=== PATIENT | female | born 1955 | race Caucasian/White ===

== ENCOUNTER 2025-01-06 16:29 | Observation (INO) ==
[2025-01-06 16:56] LABS: Hematocrit (blood only) 38.2 % (37.0-47.0); Hemoglobin 12.9 g/dl (12.0-16.0); Immature Granulocytes # (auto) 0.03 K/uL (0.01-0.20); Immature Granulocytes % (auto) 0.3 %; Mean Corpuscular Hemoglobin 30.9 pg (25.0-34.0); Mean Corpuscular Volume 91.4 fL (80.0-100.0); Platelet Count 269 K/uL (130-400); RDW Standard Deviation 42.8 fL (36.4-46.3); Red Blood Count 4.18 M/uL (4.20-5.40); White Blood Count 10.61 K/ul (4.8-10.8)
[2025-01-06 17:15] LABS: Alanine Aminotransferase 12.0 U/L (7-52); Albumin Globulin Ratio 1.0 (0.9-2); Alkaline Phosphatase 75.0 U/L (34-104); Anion Gap 9.0 (3-11); Bilirubin,Total 0.5 mg/dl (0.2-1.0); Blood Urea Nitrogen 18.0 mg/dl (6-23); Calcium 9.8 mg/dl (8.6-10.3); Carbon Dioxide 27.0 mmol/L (21-32); Chloride 103.0 mmol/L (98-107); Creatinine Clr Calc Pharmacy 62.3 ml/min; Globulin 4.2 gm/dl (2.5-4.0); Glucose 119.0 mg/dl (70-99(Fasting)); Potassium 3.7 mmol/L (3.5-5.1); Sodium 139.0 mmol/L (136-145); Total Protein 8.5 gm/dl (6.0-8.3)
[2025-01-06 17:24] LABS: INR 1.0 (0.9-1.1); Partial Thromboplastin Time 29 Seconds (21-31); Prothrombin Time 10.4 Seconds (9.0-12.0)
--- NOTE | 2025-01-06 17:30 | XRay Report ---
Clinical History: Chest pain Technique: PA and lateral views of the chest were obtained Comparison is made with the prior examination dated 12/28/2018 Findings: There are no confluent pulmonary infiltrates. The heart size is within normal limits. No pleural effusion or pneumothorax is seen. There is a suspected small calcified granuloma in the right upper lobe No fracture is noted. No foreign body is seen Impression: No active disease Electronically signed by Nathen Wong 01-06-2025 5:30 PM
--- NOTE | 2025-01-06 19:20 | Emergency Department Note ---
Impression & Plan Elevated troponin Admission ED Provider Note HPI: History obtained from patient. The patient is a 69-year-old female with history of anxiety, palpitations, depression, presents the emergency department with chief complaint of "my heart beating hard and slow". Patient states this occurred earlier today when she was having a root canal done. Patient states when they leaned her back in the chair she began to have the sensation. Patient states over the past 11 days she has had some "soreness" on the left side of her chest. Patient states that she mentioned all of the symptoms to the triage nurse on the phone when she called her doctor today and she was advised to come to the emergency room. On arrival here to the ED the patient is hypertensive, heart rate is within normal limits, patient otherwise appears to be in no acute distress. Patient denies any active chest pain on my exam. ROS: - Per HPI Differential Diagnosis: Arrhythmia to include SVT, atrial fibrillation with RVR, ventricular tachycardia, high degree heart block, ACS, PE, aortic dissection, anxiety reaction, amongst other potential pathologies. *Outpatient medications and allergy history reviewed. PE: General: Alert HEENT: Normocephalic, trachea midline Eyes: Extraocular eye movement is intact, no scleral erythema Pulmonary: Clear to auscultation bilaterally, no wheezing Cardio: Regular rate and rhythm GI: Abdomen is soft to palpation : No suprapubic tenderness MSK: No evidence of trauma or malformation of the extremities, no edema Skin: No evidence of rash Neuro: Alert, no focal deficits Psychiatric: Cooperative INDEPENDENT INTERPRETATIONS: monitor car operator: (As interpreted by myself): - An order was placed for continuous cardiac monitoring - Patient was noted to be in sinus rhythm with a rate of 95 EKG: (As interpreted by myself): Rate: 80 Rhythm: Normal sinus rhythm Intervals: Within normal limits ST changes: No ST elevation Time: 1638 Chest x-ray: (As interpreted by myself): No acute disease Interventions provided in ED: - Aspirin Medical Decision Making: IV was established and lab work obtained, patient was placed on cardiac technician. Lab work shows no leukocytosis, hemoglobin is normal, platelet count is normal, CMP does not show any evidence of any critical findings. Troponin was obtained and is mildly elevated at 18.0, patient denies any active chest pain. EKG per my interpretation shows normal sinus rhythm without acute ischemic changes. Magnesium is within normal limits, TSH is also normal. Repeat troponin was obtained given the mild elevation on the first, repeat troponin is elevated at 32. Given this with this atypical sensation that she had in her chest earlier today, I do feel the patient should be admitted for further management. Patient was in agreement to this plan. She was ordered a dose of aspirin for her mildly elevated troponin. She continues to deny chest pain on my reevaluation. I discussed the above findings with the on-call hospitalist, Dr. Warren, he is in agreement to admit the patient. Patient was placed for admission in stable condition for further care. Consultants/Discussions held with other healthcare providers: - Hospitalist, Dr. Warren Disposition discussion held by myself with: - Patient Diagnosis: 1. Elevated troponin, acute 2. Sensation of palpitations, acute 3. Hypertension, established Disposition: Admission Margarito Argueta DO Emergency Medicine Past Med/Surg History Problem List (Updated 01/06/25 @ 20:41 by Margarito Argueta DO) Elevated troponin (Acute) Medical History (Updated 01/06/25 @ 20:41 by Margarito Argueta DO) Palpitations Anxiety Major depression Surgical History No significant past surgical history Social History Smoking Status: Never smoker Preferred Language: Spanish marital status: Single Current Living Situation: Alone current occupational status: disabled Feels Safe at Home: Yes Allergies Allergies Allergy/AdvReac Type Severity Reaction Status Date / Time amoxicillin Allergy Severe Rash Unverified 01/06/25 19:55 Penicillins Allergy Severe Rash Unverified 01/06/25 19:55 clindamycin AdvReac Severe Gastrointestinal Unverified 01/06/25 19:56 Upset PT STATES DIFF TO NUMEROUSE Allergy Mild SENSITIVITY Uncoded 12/28/18 09:35 DRUGS Home Meds Home Medications Medication Instructions Recorded Confirmed metoprolol succinate 25 mg 12.5 mg PO QAM 12/28/18 01/06/25 tablet,extended release 24 hr temazepam 30 mg capsule 30 mg PO HS PRN Sleep 12/28/18 01/06/25 5-HTP 18.8 mg-tyrosine 187.5 1 cap PO HS 01/06/25 01/06/25 [id number]-chrom capsule cholecalciferol (vitamin D3) 125 10,000 unit PO DAILY 01/06/25 01/06/25 mcg (5,000 unit) tablet (Vitamin D3) flaxseed oil 1,000 mg capsule 1,000 mg PO DAILY 01/06/25 01/06/25 lutein 40 mg-zeaxanthin 1,600 mcg 1 cap PO DAILY 01/06/25 01/06/25 capsule magnesium citrate 5 ml PO QPM 01/06/25 01/06/25 melatonin 1 mg tablet 4 mg PO HS PRN Sleep 01/06/25 01/06/25 vitamin B complex 1 cap PO QAM 01/06/25 01/06/25 Results & Data (ED) Vital Signs Vital Signs - 24 hr 01/06/25 16:30 01/06/25 16:30 01/06/25 19:01 Temperature 36.6 C Temperature Source Temporal Artery Scan Pulse Rate 99 H 93 H Pulse Rate [Apical] Pulse Rhythm [Apical] Pulse Strength [Apical] Respiratory Rate 18 Respiratory Effort / Characteristics Respiratory Depth Respiratory Pattern Blood Pressure 203/92 H Blood Pressure [Right Arm] Blood Pressure Mean 129 Blood Pressure Mean [Right Arm] Blood Pressure Position [Right Arm] Pulse Oximetry 95 Oxygen Delivery Method Room Air Sepsis Recent Fever Within 48 Hours No Sepsis New/Unexplained Change in Mental Status N/A Sepsis Action Taken by Nursing No Action Required 01/06/25 19:41 01/06/25 19:41 01/06/25 19:41 Temperature Temperature Source Pulse Rate Pulse Rate [Apical] 63 Pulse Rhythm [Apical] Regular Pulse Strength [Apical] Normal Respiratory Rate 17 Respiratory Effort / Characteristics Non-Labored Respiratory Depth Normal Respiratory Pattern Regular Blood Pressure Blood Pressure [Right Arm] 183/91 H Blood Pressure Mean Blood Pressure Mean [Right Arm] 121 Blood Pressure Position [Right Arm] Sitting Pulse Oximetry 96 96 96 Oxygen Delivery Method Room Air Room Air Room Air Sepsis Recent Fever Within 48 Hours Sepsis New/Unexplained Change in Mental Status Sepsis Action Taken by Nursing Laboratory Data 01/06/25 16:40 01/06/25 16:40 Lab Results 01/06/25 01/06/25 Range/Units 16:40 19:28 WBC 10.61 (4.8-10.8) K/ul RBC 4.18 L (4.20-5.40) M/uL Hgb 12.9 (12.0-16.0) g/dl Hct 38.2 (37.0-47.0) % MCV 91.4 (80.0-100.0) fL MCH 30.9 (25.0-34.0) pg MCHC 33.8 (32.0-36.0) g/dL RDW Std Deviation 42.8 (36.4-46.3) fL RDW Coeff of Morgan 12.8 (11.5-14.5) % Plt Count 269 (130-400) K/uL MPV 10.4 (9.4-12.4) fL Immature Gran % (Auto) 0.3 % Neut % (Auto) 77.7 % Lymph % (Auto) 16.2 % [place] % (Auto) 5.0 % Eos % (Auto) 0.4 % Baso % (Auto) 0.4 % Neut # (Auto) 8.25 H (1.40-6.50) K/uL Lymph # (Auto) 1.72 (1.20-3.40) K/uL [place] # (Auto) 0.53 (0.11-0.59) K/uL Eos # (Auto) 0.04 (0.00-0.50) K/uL Baso # (Auto) 0.04 (0.00-0.20) K/uL Immature Gran # (Auto) 0.03 (0.01-0.20) K/uL PT 10.4 (9.0-12.0) Seconds INR 1.0 (0.9-1.1) APTT 29 (21-31) Seconds PTT Ratio 1.1 Sodium 139 (136-145) mmol/L Potassium 3.7 (3.5-5.1) mmol/L Chloride 103 (98-107) mmol/L Carbon Dioxide 27 (21-32) mmol/L Anion Gap 9 (3-11) BUN 18 (6-23) mg/dl Creatinine 0.84 (0.6-1.2) mg/dl Est Cr Clr Drug Dosing 62.3 ml/min eGFR 75.65 BUN/Creatinine Ratio 21.4 H (10-20) Glucose 119 H (70-99(Fasting)) mg/dl Calcium 9.8 (8.6-10.3) mg/dl Magnesium 2.0 (1.7-2.4) mg/dl Total Bilirubin 0.5 (0.2-1.0) mg/dl AST 19 (13-39) U/L ALT 12 (7-52) U/L Alkaline Phosphatase 75 (34-104) U/L Troponin I High Sens 18.0 H 32.6 H D (0-14) pg/ml Total Protein 8.5 H (6.0-8.3) gm/dl Albumin 4.3 (3.4-5.0) gm/dl Globulin 4.2 H (2.5-4.0) gm/dl Albumin/Globulin Ratio 1.0 (0.9-2) TSH 2.435 (0.300-4.500) uIu/ml Imaging Data Radiologist's Impression: Chest X-Ray 01/06/25 16:36 Clinical History: Chest pain Technique: PA and lateral views of the chest were obtained Comparison is made with the prior examination dated 12/28/2018 Findings: There are no confluent pulmonary infiltrates. The heart size is within normal limits. No pleural effusion or pneumothorax is seen. There is a suspected small calcified granuloma in the right upper lobe No fracture is noted. No foreign body is seen Impression: No active disease Electronically signed by Nathen Wong 01-06-2025 5:30 PM Discharge Plan Visit Data Chief Complaint: Chest Pain Stated Complaint: CHEST PAIN, ARRHYTHMIA, INFECTION, REF BY ED Provider: Margarito Argueta Discharge Problem: Elevated troponin Patient Disposition: Admitted As Inpatient Condition: Fair Forms Stand Alone Forms: [facility] Prescriptions Prescriptions: No Action temazepam 30 mg capsule 30 mg PO HS PRN (Reason: Sleep) metoprolol succinate 25 mg tablet extended release 24 hr 12.5 mg PO QAM flaxseed oil 1,000 mg Capsule 1,000 mg PO DAILY Rx Instructions: administer with a meal magnesium citrate Solution 5 ml PO QPM vitamin B complex Capsule 1 cap PO QAM melatonin 1 mg Tablet 4 mg PO HS PRN (Reason: Sleep) cholecalciferol (vitamin D3) [Vitamin D3] 125 mcg (5,000 unit) Tablet 10,000 unit PO DAILY lutein-zeaxanthin 40-1,600 mg-mcg Capsule 1 cap PO DAILY [id number]-[id number]-U-chr 18.8-187.5-93.8 mg Capsule 1 cap PO HS Referrals Referrals: Dana Madsen MD [Primary Care Provider] -
[2025-01-06 19:58] LABS: Magnesium 2.0 mg/dl (1.7-2.4)
[2025-01-06 20:35] LABS: Thyroid Stimulating Hormone 2.435 uIu/ml (0.300-4.500)
--- NOTE | 2025-01-06 20:36 | History & Physical Report ---
Date of Service January 06, 2025 Assessment & Plan (1) Palpitations: (2) Elevated troponin: Plan: HPI, ROS, PE completed by Tara Peña PA-C Assessment and Plan per Dr Warren. See addendum History of Present Illness Chief Complaint: palpitations Primary Care Provider: Dana Madsen MD Patient is 69 year old female with PMH anxiety, insomnia, GUANAKO presented to ER with complaint of palpitations. on 12/31/2024 was treated with Zithromax for dental infection which she finished antibiotics. Difficult to obtain history as patient repeats "I've reached my limit for the day" and doesn't want to discuss. Patient reports had a root canal this morning. She reports she has not eaten since this morning and is concerned about eating this evening. She reports currently is having a headache which she relates is secondary to not eating. She reports she is feeling anxious. Patient does state last week had episode of palpitations that she describes as her heart beating hard then felt like it was beating slow and this occurred with walking and resolved with rest. She doesn't feel that she was anxious at the time. She stopped her daily walks as thought that was factor. Had another episode of palpitations with walking several days ago that again resolved with rest. Today she sat down in dentist chair for her dental procedure and felt anxious and reports had palpitations again. Since being in ER patient denies any palpitations, CP, SOB. Just reports feeling anxious currently. Denies any CP or SOB, dizziness or syncope. has taken xanax in past prior to dental appointments but took one quarter of tablet and didn't feel helped much with anxiety. Denies fever/chills, diaphoresis, N/V/D/C, vision changes, neck pain, cough, sore throat, rhinorrhea, abdominal pain, paresthesias, weakness, extremity edema, rashes, urinary symptoms. Allergies Allergy/AdvReac Type Severity Reaction Status Date / Time amoxicillin Allergy Severe Rash Unverified 01/06/25 19:55 Penicillins Allergy Severe Rash Unverified 01/06/25 19:55 clindamycin AdvReac Severe Gastrointestinal Unverified 01/06/25 19:56 Upset PT STATES DIFF TO NUMEROUSE Allergy Mild SENSITIVITY Uncoded 12/28/18 09:35 DRUGS Home Medications Medication Instructions Recorded Confirmed Type metoprolol succinate 25 mg 12.5 mg PO QAM 12/28/18 01/06/25 History tablet,extended release 24 hr temazepam 30 mg capsule 30 mg PO HS PRN Sleep 12/28/18 01/06/25 History 5-HTP 18.8 mg-tyrosine 187.5 1 cap PO HS 01/06/25 01/06/25 History [id number]-[id number]-C-chrom capsule cholecalciferol (vitamin D3) 125 10,000 unit PO DAILY 01/06/25 01/06/25 History mcg (5,000 unit) tablet (Vitamin D3) flaxseed oil 1,000 mg capsule 1,000 mg PO DAILY 01/06/25 01/06/25 History lutein 40 mg-zeaxanthin 1,600 mcg 1 cap PO DAILY 01/06/25 01/06/25 History capsule magnesium citrate 5 ml PO QPM 01/06/25 01/06/25 History melatonin 1 mg tablet 4 mg PO HS PRN Sleep 01/06/25 01/06/25 History vitamin B complex 1 cap PO QAM 01/06/25 01/06/25 History Past Med/Surg History Problem List (Updated 01/06/25 @ 21:20 by Tara Peña PA-C) Palpitations Elevated troponin (Acute) Medical History (Updated 01/06/25 @ 21:20 by Tara Peña PA-C) GUANAKO (obstructive sleep apnea) Anxiety Major depression Surgical History (Updated 01/06/25 @ 21:17 by Tara Peña PA-C) History of esophagogastroduodenoscopy (EGD) Family History (Updated 01/06/25 @ 21:17 by Tara Peña PA-C) Other Colorectal cancer Diabetes Hypertension Social History Smoking Status: Never smoker Hx Alcohol Use: Yes Alcohol type: other Hx Substance Use: No Preferred Language: Slovenian 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 Beliefs That Will Affect Care: None marital status: Single Current Living Situation: Alone current occupational status: disabled Other Information That Helps Us Care for You: Yes (ongoing mold problem at home comes every fall) Feels Safe at Home: Yes Safety Concerns: Feels Safe At This Time Review of Systems Review of Systems: All systems reviewed & are unremarkable except as noted in HPI & below Physical Exam Physical Exam: General: no distress, WDWN Head: normocephalic, atraumatic Eyes: conjunctiva non-injected, anicteric ENT: normal inspection external ears, nose, mucous membranes moist Neck: supple, trachea midline Lungs: clear, no respiratory distress, no wheezing/rhonchi/rales CV: RRR, no murmur, no pretibial edema Abd: normal BS, soft, non-tender Ext: no cyanosis, no calf tenderness Neuro: A&O x 3, no focal deficits noted, flat affect Skin: warm, dry Results & Data Results & Data Vital Signs (Past 12 Hours) Vital Signs Temp Pulse Pulse Resp BP BP Pulse Ox 01/06/25 19:41 63 17 183/91 H 96 01/06/25 19:41 96 01/06/25 19:41 96 01/06/25 19:01 93 H 01/06/25 16:30 01/06/25 16:30 36.6 C 99 H 18 203/92 H 95 O2 Del Method 01/06/25 19:41 Room Air 01/06/25 19:41 Room Air 01/06/25 19:41 Room Air 01/06/25 19:01 01/06/25 16:30 Room Air 01/06/25 16:30 Laboratory Results Short CBC 01/06/25 Range/Units 16:40 WBC 10.61 (4.8-10.8) K/ul Hgb 12.9 (12.0-16.0) g/dl Hct 38.2 (37.0-47.0) % Plt Count 269 (130-400) K/uL BMP 01/06/25 16:40 Sodium 139 Potassium 3.7 Chloride 103 Carbon Dioxide 27 BUN 18 Creatinine 0.84 Glucose 119 H Calcium 9.8 Liver Function 01/06/25 Range/Units 16:40 Total Bilirubin 0.5 (0.2-1.0) mg/dl AST 19 (13-39) U/L ALT 12 (7-52) U/L Alkaline Phosphatase 75 (34-104) U/L Albumin 4.3 (3.4-5.0) gm/dl Diagnostic Findings Chest X-Ray 01/06/25 16:36 Clinical History: Chest pain Technique: PA and lateral views of the chest were obtained Comparison is made with the prior examination dated 12/28/2018 Findings: There are no confluent pulmonary infiltrates. The heart size is within normal limits. No pleural effusion or pneumothorax is seen. There is a suspected small calcified granuloma in the right upper lobe No fracture is noted. No foreign body is seen Impression: No active disease Electronically signed by Nathen Wong 01-06-2025 5:30 PM ECG Additional Comments: Sinus rhythm, rate 80, nonspecific ST changes per my interpretation Supervising Physician Co-Signing Physician Notes IM ATTENDING : Patient seen and examined. History obtained from patient and records. Concur with salient points upon review of preceding documentation by Ms. Tara Peña PA-C. In addition: CT head Unremarkable noncontrast CT scan of the brain. If further evaluation is clinically necessary, consider correlation with MRI. I take responsibility for plan of care below. FINAL ASSESSMENT AND PLAN as follows : Palpitations Multifactorial Uncontrolled hypertension HTP home supplement and anxiety contributory Troponin elevation secondary to uncontrolled hypertension GUANAKO on CPAP Prediabetes, hemoglobin A1c of 5.6 from 2022 Mood disorder, at baseline OBS Admit to PCU Titrate home beta-cameron as heart rate permits Add lisinopril to regimen Anxiolytic as needed Patient counseled regarding propensity of HTP home supplement to cause arrhythmias from serotonin release. Update hemoglobin A1c DVT prophylaxis. SCDs Full code I spent a total of 30 minutes coordinating, documenting, and providing care for this patientexcludingtime spent by another provider/QHP. Text document was generated using [employer] voice recognition software. It may contain grammatical or spelling errors. Kindly contact undersigned for clarification of any documentation item in question.
[2025-01-06] MEDS: METOPROLOL TARTRATE 1 MG/ML VIAL IV STA (21:10)
[2025-01-06] MEDS: ASPIRIN CHEW 324 MG PO STA (21:10)
[2025-01-06] MEDS: POTASSIUM CHLORIDE CRTAB 20 MEQ TABCR PO STA (21:11)
[2025-01-06] MEDS: ACETAMINOPHEN 325 MG TAB PO STA (22:27)
--- NOTE | 2025-01-06 23:03 | CT Scan Report ---
Exam(s): CT HEAD Without Contrast EXAM: CT Head Without Intravenous Contrast CLINICAL HISTORY: Reason for exam: [facility], [facility] crisis. TECHNIQUE: Axial computed tomography images of the head/brain without intravenous contrast. CTDI is 35 mGy and DLP is 546 mGy-cm. Automated exposure control was utilized for the study. A dose lowering technique was utilized adhering to the principles of ALARA. COMPARISON: No relevant prior studies available. FINDINGS: Brain: No acute intracranial hemorrhage. No significant white matter disease. No edema. Ventricles: Unremarkable. No ventriculomegaly. Bones/joints: Unremarkable. No acute fracture. Soft tissues: Unremarkable. Sinuses: Unremarkable as visualized. No acute sinusitis. Mastoid air cells: Unremarkable as visualized. No mastoid effusion. IMPRESSION: Unremarkable noncontrast CT scan of the brain. If further evaluation is clinically necessary, consider correlation with MRI. Electronically signed by: Uriel Figueroa MD 01/06/25 23:02 PM
[2025-01-06] MEDS ORDERED: LORazepam 0.5 MG TAB PO PRN (23:09)
[2025-01-06] MEDS ORDERED: PROMETHAZINE 6.25 MG/50.25 ML BAG IV PRN (23:09)
[2025-01-07] MEDS: LORazepam 1 MG TAB PO PRN (01:23)
[2025-01-07] MEDS: MELATONIN 3 MG TAB PO PRN (01:23)
[2025-01-07] MEDS: ACETAMINOPHEN 325 MG TAB PO PRN (01:25)
[2025-01-07 07:11] LABS: Anion Gap 5.0 (3-11); Calcium 9.1 mg/dl (8.6-10.3); Carbon Dioxide 27.0 mmol/L (21-32); Chloride 107.0 mmol/L (98-107); Potassium 4.1 mmol/L (3.5-5.1); Sodium 139.0 mmol/L (136-145)
[2025-01-07 07:16] LABS: Blood Urea Nitrogen 14.0 mg/dl (6-23); Creatinine Clr Calc Pharmacy 75.9 ml/min; Glucose 82.0 mg/dl (70-99(Fasting))
[2025-01-07] MEDS: VITAMIN B COMPLEX TAB PO SCH (08:06)
[2025-01-07] MEDS: METOPROLOL SUCC 25MG EXT REL TAB PO SCH (08:06)
[2025-01-07 08:35] LABS: Hemoglobin A1C 5.7 % (4.5-5.6)
--- NOTE | 2025-01-07 11:21 | Electrocardiogram Report ---
Test Reason : Blood Pressure : */* mmHG Vent. Rate : 80 BPM Atrial Rate : 80 BPM P-R Int : 126 ms QRS Dur : 80 ms QT Int : 374 ms P-R-T Axes : 52 69 47 degrees QTcB Int : 431 ms Normal sinus rhythm Nonspecific ST abnormality Abnormal ECG When compared with ECG of 28-Dec-2018 11:40, ST now depressed in Inferior leads Confirmed by Luis Hills ([id number]) on 01/07/2025 11:20:44 AM Referred By: Confirmed By: Luis Hills
[2025-01-07 15:47] VITALS: BP 133/78; RESP 20; TEMP 98.4; O2SAT 93
--- NOTE | 2025-01-07 15:59 | Hospitalist Progress Note ---
Date of Service January 07, 2025 Assessment & Plan (1) Palpitations: Plan 69 year old female with PMH anxiety, insomnia, GUAANKO presented to ER with complaint of palpitations. Patient reports she has frequent anxiety and palpitation, but has been having more lately. Patient not open to scheduled psychiatric medication, is not open to inpatient psychiatric evaluation. Patient denies chest pain or shortness of breath. Anxiety and palpitation: Patient has underlying history of anxiety, not open to psychiatric evaluation, okay with as needed Vistaril, not open with a scheduled medication. Patient encouraged to continue to follow-up with her outpatient psychiatry. Patient advised to stop HTP home supplement. Elevated troponin: Likely demand ischemia in the setting of uncontrolled blood pressure and palpitation. Troponin slightly up trended and then down trended. Patient without chest pain or shortness of breath. EKG without ST-T changes. Pending echo. Continue telemetry monitoring. Uncontrolled hypertension: Lisinopril added, metoprolol dose increased. Follow echo. GUANAKO on CPAP Prediabetes: Repeat A1c in 3 months. Mood disorder, patient reports she is at her baseline. DVT prophylaxis: SCDs Full code Admission and Anticipated Discharge Date Admission Date: January 06, 2025 Subjective Patient was seen and examined at bedside. Patient was sitting up in bed, on room air, NAD, resting comfortably. Patient reports not significant palpitation while in hospital, denies chest pain or shortness of breath or nausea or warmth. Patient reports that she follows with psychiatry as an outpatient but appears that she has not opened up to psy medication. Patient declined inpatient psychiatric evaluation, is okay with as needed hydroxyzine upon discharge. Physical Exam Physical Exam: General: no distress, WDWN Head: normocephalic, atraumatic Eyes: conjunctiva non-injected, anicteric ENT: normal inspection external ears, nose, mucous membranes moist Neck: supple, trachea midline Lungs: clear, no respiratory distress, no wheezing/rhonchi/rales CV: RRR, no murmur, no pretibial edema Abd: normal BS, soft, non-tender Ext: no cyanosis, no calf tenderness Neuro: A&O x 3, no focal deficits noted, flat affect Skin: warm, dry Results & Data Results & Data Vital Signs (Past 12 Hours) Vital Signs Temp Pulse Pulse Resp BP Pulse Ox O2 Del Method 01/07/25 15:46 36.9 C 112 H 20 133/78 93 Room Air 01/07/25 11:34 36.7 C 77 19 116/75 98 Room Air 01/07/25 07:46 36.4 C L 69 16 128/76 98 Room Air 01/07/25 07:43 52 L
--- NOTE | 2025-01-07 16:39 | Discharge Summary ---
Date of Service January 07, 2025 Admission HPI Per Admitting Provider Patient is 69 year old female with PMH anxiety, insomnia, GUANAKO presented to ER with complaint of palpitations. on 12/31/2024 was treated with Zithromax for dental infection which she finished antibiotics. Difficult to obtain history as patient repeats "I've reached my limit for the day" and doesn't want to discuss. Patient reports had a root canal this morning. She reports she has not eaten since this morning and is concerned about eating this evening. She reports currently is having a headache which she relates is secondary to not eating. She reports she is feeling anxious. Patient does state last week had episode of palpitations that she describes as her heart beating hard then felt like it was beating slow and this occurred with walking and resolved with rest. She doesn't feel that she was anxious at the time. She stopped her daily walks as thought that was factor. Had another episode of palpitations with walking several days ago that again resolved with rest. Today she sat down in dentist chair for her dental procedure and felt anxious and reports had palpitations again. Since being in ER patient denies any palpitations, CP, SOB. Just reports feeling anxious currently. Denies any CP or SOB, dizziness or syncope. has taken xanax in past prior to dental appointments but took one quarter of tablet and didn't feel helped much with anxiety. Denies fever/chills, diaphoresis, N/V/D/C, vision changes, neck pain, cough, sore throat, rhinorrhea, abdominal pain, paresthesias, weakness, extremity edema, rashes, urinary symptoms. Admission Exam Per Admitting Provider General: no distress, WDWN Head: normocephalic, atraumatic Eyes: conjunctiva non-injected, anicteric ENT: normal inspection external ears, nose, mucous membranes moist Neck: supple, trachea midline Lungs: clear, no respiratory distress, no wheezing/rhonchi/rales CV: RRR, no murmur, no pretibial edema Abd: normal BS, soft, non-tender Ext: no cyanosis, no calf tenderness Neuro: A&O x 3, no focal deficits noted, flat affect Skin: warm, dry Principal Diagnosis Palpitation Uncontrolled hypertension Underlying anxiety Discharge Exam General: no distress, WDWN Head: normocephalic, atraumatic Eyes: conjunctiva non-injected, anicteric ENT: normal inspection external ears, nose, mucous membranes moist Neck: supple, trachea midline Lungs: clear, no respiratory distress, no wheezing/rhonchi/rales CV: RRR, no murmur, no pretibial edema Abd: normal BS, soft, non-tender Ext: no cyanosis, no calf tenderness Neuro: A&O x 3, no focal deficits noted, flat affect Skin: warm, dry Discharge Data Allergies Allergy/AdvReac Type Severity Reaction Status Date / Time amoxicillin Allergy Severe Rash Unverified 01/06/25 19:55 Penicillins Allergy Severe Rash Unverified 01/06/25 19:55 clindamycin AdvReac Severe Gastrointestinal Unverified 01/06/25 19:56 Upset PT STATES DIFF TO NUMEROUSE Allergy Mild SENSITIVITY Uncoded 12/28/18 09:35 DRUGS Consultations 01/06/25 20:16 ED Decision to Admit Stat Ordered Studies 01/06/25 21:25 CT head/brain wo con Stat Hospital Course (1) Palpitations: Plan 69 year old female with PMH anxiety, insomnia, GUANAKO presented to ER with complaint of palpitations. Patient reports she has frequent anxiety and palpitation, but has been having more lately. Patient not open to scheduled psychiatric medication, is not open to inpatient psychiatric evaluation. Patient denies chest pain or shortness of breath. Anxiety and palpitation: Patient has underlying history of anxiety, not open to psychiatric evaluation, okay with as needed Vistaril, not open with a scheduled medication. Patient encouraged to continue to follow-up with her outpatient psychiatry. Patient advised to stop HTP home supplement. Elevated troponin: Likely demand ischemia in the setting of uncontrolled blood pressure and palpitation. Troponin slightly up trended and then down trended. Patient without chest pain or shortness of breath. EKG without ST-T changes. ECHO w/ nl EF and nl LV wall motion. Continue telemetry monitoring. Uncontrolled hypertension: Lisinopril added, metoprolol dose increased. BP better controlled now. pt advised to f/u w/ pcp office closely for ongoing management of HTN. GUANAKO on CPAP Prediabetes: f/u w/ pcp for senior care monitoring. Mood disorder, patient reports she is at her baseline. DVT prophylaxis: SCDs Full code Follow-up with your primary care physician within a week time and likely you will need labs CBC/CMP/magnesium/phosphorus. As discussed at the bedside, recommend that you continue to follow-up with your outpatient psychiatry and consider medication trial for your anxiety disorder. Your blood pressure medication has been optimized, your metoprolol dose has been increased. Recommend that you stop 5-hydroxytryptophan supplement. Take your medications as prescribed. Please make sure that you are able to get your medications today by calling your pharmacy before you leave the hospital so that your treatment continuity is not broken. Home Health Attestation I certify that this patient is under my care and that I, or a physicians corporate administrative assistant working with me, had a face to-face encounter that meets the home health [id number] encounter requirements with this patient. The encounter with the patient was in whole, or in part, for the following medical condition, which is the primary reason for home health care (list medical condition): I certify that, based on my findings, the following services are medically necessary home health services: My clinical findings support the need for the above services because: Further, I certify that my clinical findings support that this patient is homebound (i.e. absences from home require considerable and taxing effort and are for medical reasons or confucianist services or infrequently or of short duration when for other reasons) because: Certification for Home Health Services: Based on the above findings, I certify that this patient is confined to the home and needs intermittent usp care, physical therapy and/or speech therapy or continues to need occupational therapy. The patient is under my care, and I have initiated the establishment of the plan of care. This patient will be followed by a physician who will periodically review the plan of care. Total Time Total Time Spent Total Time Spent (In Minutes): 45 Discharge Plan Discharge Items Patient Disposition: Home - Self-Care Reason For Visit: PALPITATIONS, PRIVATE RM PER REQ Discharge Diagnosis: Palpitation Uncontrolled hypertension Underlying anxiety Condition on Discharge: Fair Activity: Resume your previous activity Non-emergency contact: Primary Care Provider Call non-emergency contact if: you have any medication questions and your symptoms worsen Follow-up/Referrals: Dana Madsen MD [Primary Care Provider] - Diet: Gluten Free, Heart Healthy and Lactose Intolerant Addtl Attending Provider Instructions: Follow-up with your primary care physician within a week time and likely you will need labs CBC/CMP/magnesium/phosphorus. As discussed at the bedside, recommend that you continue to follow-up with your outpatient psychiatry and consider medication trial for your anxiety disorder. Your blood pressure medication has been optimized, your metoprolol dose has been increased. Recommend that you stop 5-hydroxytryptophan supplement. Take your medications as prescribed. Please make sure that you are able to get your medications today by calling your pharmacy before you leave the hospital so that your treatment continuity is not broken. Pending Studies at Discharge: No Stand-Alone Forms: [facility], Smoking Cessation Medications and DC Order Prescriptions: New metoprolol succinate 25 mg Tablet Extended Release 24 Hr 25 mg PO QAM Qty: 30 0RF hydroxyzine HCl 10 mg Tablet 10 mg PO TID PRN (Reason: anxiety) Qty: 15 0RF lisinopril 2.5 mg Tablet 2.5 mg PO QAM Qty: 30 0RF Continued temazepam 30 mg capsule 30 mg PO HS PRN (Reason: Sleep) magnesium citrate Solution 5 ml PO QPM vitamin B complex Capsule 1 cap PO QAM melatonin 1 mg Tablet 4 mg PO HS PRN (Reason: Sleep) cholecalciferol (vitamin D3) [Vitamin D3] 125 mcg (5,000 unit) Tablet 10,000 unit PO DAILY Discontinued flaxseed oil 1,000 mg Capsule 1,000 mg PO DAILY Rx Instructions: administer with a meal lutein-zeaxanthin 40-1,600 mg-mcg Capsule 1 cap PO DAILY [id number] 18.8-187.5-93.8 mg Capsule 1 cap PO HS No Action metoprolol succinate 25 mg tablet extended release 24 hr 12.5 mg PO QAM Discharge Orders: Discharge Order (Routine); Ordered 01/07/25 Ordered By: Alan Bashir Admission Data Admit Date/Time: 01/06/25 23:06 Attending Provider: Alan Bashir Admit Provider: Shun Warren Primary Care Provider: Dana Madsen Other Providers: Shun Warren
[2025-01-07 17:43] VITALS: PULSE 112
--- NOTE | 2025-01-08 12:51 | Electrocardiogram Report ---
Test Reason : Blood Pressure : */* mmHG Vent. Rate : 79 BPM Atrial Rate : 79 BPM P-R Int : 142 ms QRS Dur : 82 ms QT Int : 400 ms P-R-T Axes : 47 67 46 degrees QTcB Int : 458 ms Normal sinus rhythm Nonspecific ST abnormality Abnormal ECG When compared with ECG of 06-Jan-2025 16:38, No significant change was found Confirmed by Luis Hills ([id number]) on 01/08/2025 12:51:11 PM Referred By: Dana Madsen Confirmed By: Luis Hills
== END 2025-01-07 19:34 | disposition home or self-care (01) ==
LOC: 2S 16:29 → ED 16:29 → 2S 01-07 00:27